=== PATIENT | male | born 1970 | race Caucasian/White ===

== ENCOUNTER 2017-05-24 07:53 | Day surgery (SDC) | payer BC, OTHER ==
[2017-05-19 13:21] VITALS: BMI 25.1
[~2017-05-24 07:53] MED LIST: DEXAMETHASONE SOD PHOSPHATE 10 MG/ML 1 ML VIAL IV ONE; HEPARIN SODIUM,PORCINE 5,000 UNIT/ML 1 ML VIAL SQ ONE; LACTATED RINGERS 1,000 ML IV SCH; LIDOCAINE 1% 20 ML VIAL (10MG/ML) FOR IV START INTRADERMA PRN; ONDANSETRON 4 MG/2 ML VIAL IVP ONE; SCOPOLAMINE 1.5MG/72HR PATCH TRANSDERM ONE; ceFAZolin 2 GM in SODIUM CHLORIDE 0.9% 100 ML IVPB ONE
--- NOTE | 2017-05-24 09:44 | P.GSHP ---
History of Present Illness H&P Date: 05/24/17 Chief Complaint: Umbilical hernia 's is a 47-year-old male who presents today for laparoscopic robotic-assisted umbilical hernia repair. Patient's complaints of a mass at his umbilicus. Past Medical History Past Medical History: GERD/Reflux, Hyperlipidemia, Hypertension Additional Past Medical History / Comment(s): States he thinks he has palpatations @ times. History of Any Multi-Drug Resistant Organisms: None Reported Past Surgical History: No Surgical Hx Reported Additional Past Surgical History / Comment(s): Oral surgery for wisdom teeth. Smoking Status: Current every day smoker - Past Family History Mother Family Medical History: No Reported History Medications and Allergies Home Medications Medication Instructions Recorded Confirmed Type amLODIPine/VALSARTAN [Exforge 1 tab PO HS 12/20/13 05/24/17 History 10-320 mg Tablet] Allergies Allergy/AdvReac Type Severity Reaction Status Date / Time No Known Allergies Allergy Verified 05/24/17 08:21 Surgical - Exam Vital Signs Temp Pulse Resp BP Pulse Ox 97.8 F 74 16 139/87 98 05/24/17 08:25 05/24/17 08:25 05/24/17 08:25 05/24/17 08:25 05/24/17 08:25 - General well developed, no distress - Eyes PERRL - ENT normal pinna - Neck no masses - Respiratory normal expansion - Cardiovascular Rhythm: regular - Abdomen Abdomen: soft, non tender Hernia: umbilical Assessment and Plan Plan: Umbilical hernia. We'll perform laparoscopic robotic-assisted repair.
[2017-05-24] MEDS ORDERED: MIDAZOLAM 2 MG/2 ML VIAL ONE (09:56)
[2017-05-24] MEDS ORDERED: ROCURONIUM BROMIDE 10 MG/ML 10 ML VIAL IV ONE (09:56)
[2017-05-24] MEDS ORDERED: HYDROmorphone (PF) 1 MG/ML ONE (09:56)
[2017-05-24] MEDS ORDERED: LIDOCAINE 1% INJ 10MG/ML (20 ML MDV) ONE (09:56)
[2017-05-24] MEDS ORDERED: PROPOFOL 10 MG/ML 20 ML VIAL IV ONE (09:56)
[2017-05-24] MEDS ORDERED: NEOSTIGMINE 1 MG/ML 10 ML VIAL ONE (09:56)
[2017-05-24] MEDS ORDERED: fentaNYL (PF) 50 MCG/ML 2 ML AMP ONE (09:56)
[2017-05-24] MEDS ORDERED: SUCCINYLCHOLINE CHLORIDE 100 MG/5 ML SYR IV ONE (09:56)
[2017-05-24] MEDS ORDERED: GLYCOPYRROLATE 0.2 MG/ML 2 ML VIAL ONE (09:56)
[2017-05-24] MEDS ORDERED: BUPIVACAINE (PF) 0.25% 30 ML VIAL SQ ONE (10:27)
[2017-05-24] MEDS ORDERED: LIDOCAINE 2%-EPI 1:100,000 20 ML VIAL SQ ONE (10:27)
[2017-05-24] MEDS ORDERED: LACTATED RINGERS 1,000 ML IV ONE ×2 (10:53→15:40)
--- NOTE | 2017-05-24 10:56 | P.OP ---
Date of Procedure: 05/24/17 Preoperative Diagnosis: Incarcerated umbilical hernia Postoperative Diagnosis: Incarcerated umbilical hernia Procedure(s) Performed: Laparoscopic robotic system repair of incarcerated umbilical hernia Anesthesia: MAC Surgeon: Puma Vargas Pathology: none sent (5) Condition: stable Disposition: PACU Description of Procedure: The patient's placed the operative table in the supine position. He received general anesthesia. His abdomen was prepped and draped usual sterile fashion. The skin incision sites were anesthetized 1% local Xylocaine. The abdomen was entered in the left upper quadrant under direct visualization Z optical blade less trocar. After adequate insufflation the laparoscope was placed back into the peritoneal cavity. Next a 8 mm robotic trochars placed left lower quadrant and a 12 mm trochars placed left lateral position and the original I millimeter trocar was exchanged for an 8 mm robotic trocar. The patient's placed in the left side up position and then docked the robot. The umbilical hernia contained incarcerated preperitoneal fat was dissected using hook cautery. The fascial defect was then closed with OV lock suture. The repair was then buttressed with a ventral light ST mesh. This was secured with 206 at a fixed suture. The patient was then undocked the robot. The needles were retrieved. The trochars withdrawn. The 12 trocar site was closed with 0 Ethibond suture. The skin was closed interrupted 3-0 Monocryl suture. Dermabond was applied. Patient was sent to recovery room in stable condition.
[2017-05-24] MEDS: HYDROmorphone 0.5 MG/0.5 ML SYRINGE IVP PRN ×4 (11:07→11:43)
[2017-05-24 11:16] VITALS: TEMP 96.8
[2017-05-24] MEDS ORDERED: HYDROcodone/APAP 7.5-325MG 1 EACH TAB PO ONE (13:22)
[2017-05-24 15:00] VITALS: RESP 18
[2017-05-24 16:53] VITALS: PULSE 94
[2017-05-24] MEDS ORDERED: TAMSULOSIN 0.4 MG CAP.ER.24H PO STA (16:54)
[2017-05-24] MEDS ORDERED: KETOROLAC 30 MG/ML 1 ML VIAL IVP ONE (16:54)
[2017-05-24] MEDS ORDERED: TAMSULOSIN 0.4 MG CAP.ER.24H PO ONE (17:05)
[2017-05-24 17:39] VITALS: BP 137/90
== END 2017-05-24 17:58 | disposition home or self-care (01) ==
LOC: OR 07:53
PROVIDERS: ATTEND Surgery
DX: K42.0 Umbilical hernia with obstruction, without gangrene (principal); K21.9 Gastro-esophageal reflux disease without esophagitis; E78.5 Hyperlipidemia, unspecified; I10 Essential (primary) hypertension; F17.200 Nicotine dependence, unspecified, uncomplicated; Z79.899 Other long term (current) drug therapy
CPT/HCPCS: 49653; S2900

== ENCOUNTER → 2019-05-03 | Outpatient (CLI) | payer OTHER ==
[2019-05-03 09:59] LABS: African American GFR (CKD) >90 (>60 ml/min/1.73 sqM); Blood Urea Nitrogen 12 mg/dL (9-20); Non-African American GFR(CKD) >90 (>60 ml/min/1.73 sqM)
--- NOTE | 2019-05-03 10:34 | CT ---
EXAMINATION TYPE: CT soft tissue neck w con DATE OF EXAM: 05/03/2019 HISTORY: sore throat for 6 months per patient, neoplasm of uncertain behavior of tonsil COMPARISON: NONE CT DLP: 338.9 mGycm. Automated Exposure Control for Dose Reduction was Utilized. TECHNIQUE: CT scan of the neck is performed with IV Contrast, patient injected with 100 mL of Isovue 300, axial images are obtained, coronal and sagittal reformatted images are reviewed. FINDINGS: Airway: Hypopharyngeal oropharyngeal airways are patent. Region of epiglottis and vallecula appears w ithin normal limits on sagittal images. Level of piriform sinus show slight asymmetric filling of the left without obvious mass. Parapharyngeal fat spaces are maintained bilaterally. Thyroid gland. With in normal limits. Lung apices are clear. No obvious mass of tongue base. Streak artifact from maxilla ry and mandibular cavitary fillings is noted. Parotid/submandibular glands: No gross abnormality seen. Carotid/Vascular Structures: No significant abnormality is seen. Osseous Structures: Posterior spur disc complex C3-C4 level sagittal image 47. Additional spur disc c omplexes noted at C5-C6 and C6-C7 level effaces anterior thecal sac. Other: Prominent but subcentimeter lymph nodes are seen throughout the neck bilaterally. For referenc e there is 8 x 6 mm right submandibular lymph node axial image 57. No greater than 1 cm neck lymph no chao are identified. Probable subcentimeter lymph node posterior left supraclavicular region axial brian ge 45. IMPRESSION: No obvious mucosal mass or suspicious neck adenopathy.
== END | disposition home or self-care (01) ==
LOC: RADCTMAIN 09:00
PROVIDERS: ATTEND Otolaryngology Otolaryngic Allergy
DX: D37.05 Neoplasm of uncertain behavior of pharynx (principal); Z01.812 Encounter for preprocedural laboratory examination
CPT/HCPCS: 82565; 84520; 70491; 36415; Q9967